=== PATIENT | male | born 1940 | race Caucasian/White ===

== ENCOUNTER 2017-05-20 07:25 | Day surgery (SDC) | payer MEDICARE ==
[2017-05-18 11:42] LABS: BASOPHILS % (AUTO) 0.5 % (0-1); EOSINOPHILS # (AUTO) 0.2 X10'3 (0-0.9); EOSINOPHILS % (AUTO) 3.1 % (0-6); LYMPHOCYTES # (AUTO) 1.3 X10'3 (1.1-4.8); LYMPHOCYTES % (AUTO) 24.9 % (21-51); MEAN CORPUSCULAR HEMOGLOBIN 31.1 PG (27.0-31.0); MEAN CORPUSCULAR HGB CONC 34.9 % (33.0-36.5); MEAN CORPUSCULAR VOLUME 89.3 FL (78-98); MEAN PLATELET VOLUME 7.7 FL (7.4-10.4); MONOCYTES # (AUTO) 0.6 X10'3 (0-0.9); MONOCYTES % (AUTO) 12.7 % (2-12); NEUTROPHILS % (AUTO) 58.8 % (42-75); PRE OP HEMATOCRIT 43.2 % (42.0-52.0); PRE OP HEMOGLOBIN 15.1 g/dL (14.0-17.9); PRE OP PLATELET COUNT 202 X10'3 (140-440); RED BLOOD COUNT 4.84 X10'6 (4.70-6.10); RED CELL DISTRIBUTION WIDTH 13.1 % (11.5-14.5)
[2017-05-18 12:02] LABS: ALBUMIN 3.8 G/DL (3.4-5.0); ALBUMIN/GLOBULIN RATIO 1.3 (1.1-1.5); ALKALINE PHOSPHATASE 81 IU/L (46-116); BLOOD UREA NITROGEN 25 MG/DL (7-18); CALCIUM 8.9 MG/DL (8.5-10.1); CHLORIDE 105 MMOL/L (99-107); CREATININE 0.96 MG/DL (0.60-1.10); PRE OP ALT 39 U/L (30-65); PRE OP ANION GAP 7 (8-16); PRE OP AST 31 U/L (10-37); PRE OP BILIRUB, TOTAL 0.9 MG/DL (0.0-1.0); PRE OP GLUCOSE 99 MG/DL (70-104); PRE OP SODIUM 142 MMOL/L (135-145); TOTAL CARBON DIOXIDE 30.3 MMOL/L (24-32); TOTAL PROTEIN 6.8 G/DL (6.4-8.2); eGFR 76 ML/MIN
[2017-05-20] VITALS (7 sets, daily range): BP systolic 118–147; BP diastolic 72–86
[~2017-05-20] VITALS: Ht 170.2 cm; Wt 82.8 kg
[~2017-05-20 07:25] MED LIST: BENA20TA9 PO; BUPIVAcaine/PF 2.5 mg/ml (0.25%) 30ml vial ONE; CETI-194 PO; CHON100P3 PO; GLUC15006 PO; HYDR25TA4 PO; LIDOcaine 1% (10mg/ml) 2ml vial ONE; LIDOcaine 1% 30ml preserv. free vial ONE; MULT-1085 PO; NAPR-996 PO; OMEP20CA10 PO; bacitracin 15gm ointment TP ONE; ceFAZolin 1000mg inj ONE; ceFAZolin 2gm in dextrose, iso 100 ML IV ONE; epiNEPHrine 1 mg/ml inj ONE; famotidine 20mg tablet PO ONE; ringers solution, lacted 1,000 ML IV SCH
[2017-05-20] MEDS ORDERED: MIDAZolam 5mg/5ml vial ONE (09:26)
[2017-05-20] MEDS ORDERED: fentaNYL/PF 50MCG/1 ML 2ML syringe ONE (09:27)
[2017-05-20] MEDS ORDERED: sevoflurane 250ml liquid IH ONE (10:32)
[2017-05-20] MEDS ORDERED: ringers solution, lacted 1,000 ML IV ONE (10:52)
[2017-05-20] MEDS ORDERED: morphine 4 MG/ML inj SYRINge IV PRN ×2 (10:55)
[2017-05-20] MEDS ORDERED: hydrALAZINE 20mg/ml inj. IV PRN (10:55)
[2017-05-20] MEDS ORDERED: meperidine/PF 50mg/ml syringe IV ONE (10:55)
[2017-05-20] MEDS ORDERED: labetalol 20mg/4ml (5mg/ml) syringe IV PRN (10:55)
[2017-05-20] MEDS ORDERED: meperidine/PF 50mg/ml syringe IV PRN ×2 (10:55)
[2017-05-20] MEDS ORDERED: ondansetron/PF 4mg/2ml inj IV PRN (10:55)
[2017-05-20] MEDS ORDERED: LIDOcaine 2% (20mg/ml) 5ml vial ONE (11:14)
[2017-05-20] MEDS ORDERED: dexamethasone sod phosphate 4mg/ml inj. ONE (11:14)
[2017-05-20] MEDS ORDERED: ondansetron/PF 4mg/2ml inj ONE (11:14)
[2017-05-20] MEDS ORDERED: propofol inj 20 ML IV ONE (11:14)
== END 2017-05-20 12:30 | disposition home or self-care (01) ==
LOC: PAS 07:25
PROVIDERS: ATTEND Surgery
DX: D17.1 Benign lipomatous neoplasm of skin and subcutaneous tissue of trunk (principal); I50.9 Heart failure, unspecified; M19.90 Unspecified osteoarthritis, unspecified site; I11.0 Hypertensive heart disease with heart failure; K21.9 Gastro-esophageal reflux disease without esophagitis; N40.0 Benign prostatic hyperplasia without lower urinary tract symptoms; Z72.89 Other problems related to lifestyle; Z90.49 Acquired absence of other specified parts of digestive tract; Z85.46 Personal history of malignant neoplasm of prostate; Z98.890 Other specified postprocedural states; Z79.899 Other long term (current) drug therapy
CPT/HCPCS: 21931; 36415; 80053; 85025; 93005; J0171; J0690; J1100; J2001; J2250; J2405; J2704; J3010; J3490; J7120; A7000

== ENCOUNTER 2017-12-07 07:48 | Emergency (ER) | payer MEDICARE ==
[~2017-12-07] VITALS: Ht 170.2 cm; Wt 79.5 kg
[~2017-12-07 07:48] MED LIST changes: -BUPIVAcaine/PF 2.5 mg/ml (0.25%) 30ml vial ONE; -LIDOcaine 1% (10mg/ml) 2ml vial ONE; -LIDOcaine 1% 30ml preserv. free vial ONE; -bacitracin 15gm ointment TP ONE; -ceFAZolin 1000mg inj ONE; -ceFAZolin 2gm in dextrose, iso 100 ML IV ONE; -epiNEPHrine 1 mg/ml inj ONE; -famotidine 20mg tablet PO ONE; -ringers solution, lacted 1,000 ML IV SCH
[2017-12-07 08:18] VITALS: BP 151/90
[2017-12-07 08:22] LABS: BASOPHILS % (AUTO) 0.4 % (0-1); EOSINOPHILS # (AUTO) 0.1 X10'3 (0-0.9); EOSINOPHILS % (AUTO) 1.3 % (0-6); HEMATOCRIT 45.9 % (42.0-52.0); HEMOGLOBIN 15.5 g/dl (14.0-17.9); LYMPHOCYTES # (AUTO) 0.8 X10'3 (1.1-4.8); LYMPHOCYTES % (AUTO) 8.3 % (21-51); MEAN CORPUSCULAR HEMOGLOBIN 30.9 PG (27.0-31.0); MEAN CORPUSCULAR HGB CONC 33.7 % (33.0-36.5); MEAN CORPUSCULAR VOLUME 91.8 FL (78-98); MEAN PLATELET VOLUME 7.5 FL (7.4-10.4); MONOCYTES # (AUTO) 0.9 X10'3 (0-0.9); MONOCYTES % (AUTO) 9.4 % (2-12); NEUTROPHILS % (AUTO) 80.6 % (42-75); PLATELET COUNT 214 X10'3 (140-440); RED CELL DISTRIBUTION WIDTH 13.5 % (11.5-14.5)
[2017-12-07 08:23] LABS: CLARITY,URINE SLIGHTLY CLOUDY (Clear); COLOR,URINE YELLOW (Yellow); GLUCOSE, URINE NEGATIVE (Neg); KETONES,URINE NEGATIVE (Neg); LEUKOCYTE ESTERASE ,URINE NEGATIVE (Neg); NITRITES, URINE NEGATIVE (Neg); OCCULT BLOOD,URINE SMALL (Neg); PH,URINE 5.5 (4.8-8.0); PROTEIN,URINE NEGATIVE (Neg); UROBILINOGEN,URINE 0.2 E.U/dL (0.2-1.0)
[2017-12-07 08:24] LABS: UA COLLECTION TYPE VOIDED
[2017-12-07 08:29] LABS: MUCUS STRANDS MANY /LPF (Neg); SQUAMOUS EPITHELIAL CELL,UR FEW /LPF (FEW)
[2017-12-07 08:30] LABS: BACTERIA,URINE NONE SEEN /HPF (Neg); RBC,URINE 0-2 /HPF (0-2); WBC,URINE 0-4 /HPF (0-4)
[2017-12-07] MEDS ORDERED: ringers solution, lactated 1000ml IV soln IV ONE (08:30)
[2017-12-07] MEDS ORDERED: ondansetron/PF 4mg/2ml inj IV ONE (08:30)
[2017-12-07 08:31] LABS: AMORPHOUS URATES 1+
[2017-12-07 08:38] LABS: ALANINE AMINOTRANSFERASE 24 U/L (12-78); ALBUMIN 3.8 G/DL (3.4-5.0); ALBUMIN/GLOBULIN RATIO 1.4 (1.1-1.5); ALKALINE PHOSPHATASE 81 IU/L (46-116); ANION GAP 7 (8-16); ASPARTATE AMINO TRANSFERASE 23 U/L (10-37); BILIRUBIN,TOTAL 0.8 MG/DL (0.1-1.0); BLOOD UREA NITROGEN 24 MG/DL (7-18); BUN/CREATININE RATIO 24.5 (5.4-32.0); CALCIUM 8.5 MG/DL (8.5-10.1); CHLORIDE 101 MMOL/L (99-107); CREATININE 0.98 MG/DL (0.60-1.10); GLUCOSE 122 MG/DL (70-104); LIPASE 157 U/L (73-393); SODIUM 138 MMOL/L (135-145); TOTAL CARBON DIOXIDE 29.7 MMOL/L (24-32); TOTAL PROTEIN 6.6 G/DL (6.4-8.2); eGFR 74 ML/MIN
[2017-12-08 17:11] LABS: OCCULT BLOOD STOOL NEGATIVE (Neg)
== END 2017-12-07 10:19 | disposition home or self-care (01) ==
LOC: ER 07:48
DX: K52.9 Noninfective gastroenteritis and colitis, unspecified (principal); I10 Essential (primary) hypertension; Z79.899 Other long term (current) drug therapy
CPT/HCPCS: 36415; 80053; 81001; 82272; 83605; 83690; 85025; 85610; 99284; J7120

== ENCOUNTER 2020-08-15 07:28 | Day surgery (SDC) | payer MEDICARE ==
[2020-08-14 13:41] LABS: BASOPHILS % (AUTO) 0.3 % (0-1); EOSINOPHILS # (AUTO) 0.1 X10'3 (0-0.9); LYMPHOCYTES # (AUTO) 1.4 X10'3 (1.1-4.8); LYMPHOCYTES % (AUTO) 23.7 % (21-51); MEAN CORPUSCULAR HEMOGLOBIN 30.2 PG (27.0-31.0); MEAN CORPUSCULAR HGB CONC 33.7 g/dL (33.0-36.5); MEAN CORPUSCULAR VOLUME 89.6 FL (78-98); MEAN PLATELET VOLUME 7.4 FL (7.4-10.4); MONOCYTES # (AUTO) 1.4 X10'3 (0-0.9); MONOCYTES % (AUTO) 23.8 % (2-12); NEUTROPHILS # (AUTO) 3.1 X10'3 (1.8-7.7); NEUTROPHILS % (AUTO) 51.2 % (42-75); PRE OP HEMATOCRIT 40.4 % (42.0-52.0); PRE OP HEMOGLOBIN 13.6 g/dL (14.0-17.9); PRE OP PLATELET COUNT 197 X10'3 (140-440); RED BLOOD COUNT 4.51 X10'6 (4.70-6.10); RED CELL DISTRIBUTION WIDTH 13.1 % (11.5-14.5)
[2020-08-14 13:51] LABS: CLARITY,URINE CLEAR (Clear); COLOR,URINE YELLOW (Yellow); GLUCOSE, URINE NEGATIVE (Neg); KETONES,URINE NEGATIVE (Neg); LEUKOCYTE ESTERASE ,URINE NEGATIVE (Neg); NITRITES, URINE NEGATIVE (Neg); OCCULT BLOOD,URINE NEGATIVE (Neg); PH,URINE 5.5 (4.8-8.0); PROTEIN,URINE NEGATIVE (Neg); UROBILINOGEN,URINE 0.2 E.U/dL (0.2-1.0)
[2020-08-14 13:56] LABS: ALBUMIN 3.8 G/DL (3.4-5.0); ALBUMIN/GLOBULIN RATIO 1.3 (1.1-1.5); ALKALINE PHOSPHATASE 85 IU/L (46-116); BLOOD UREA NITROGEN 24 MG/DL (7-18); BUN/CREATININE RATIO 25.5 (5.4-32.0); CALCIUM 8.6 MG/DL (8.5-10.1); CHLORIDE 101 MMOL/L (99-107); CREATININE 0.94 MG/DL (0.60-1.10); PRE OP ALT 29 U/L (30-65); PRE OP ANION GAP 6 (8-16); PRE OP AST 29 U/L (10-37); PRE OP BILIRUB, TOTAL 0.7 MG/DL (0.0-1.0); PRE OP GLUCOSE 97 MG/DL (70-104); PRE OP POTASSIUM 3.9 MMOL/L (3.4-5.1); PRE OP SODIUM 136 MMOL/L (135-145); TOTAL CARBON DIOXIDE 29.1 MMOL/L (24-32); TOTAL PROTEIN 6.7 G/DL (6.4-8.2); eGFR 78 ML/MIN
[2020-08-14 13:58] LABS: UA COLLECTION TYPE CLN CATCH MIDSTREAM
[2020-08-14 14:21] LABS: PLATELET ESTIMATE NORMAL; TOTAL CELLS COUNTED 100
[~2020-08-15] VITALS: Ht 170.2 cm; Wt 81.2 kg
[2020-08-15] VITALS (7 sets, daily range): BP systolic 139–156; BP diastolic 75–89
[~2020-08-15 07:28] MED LIST changes: -CHON100P3 PO; +MELO-102 PO; -NAPR-996 PO; -OMEP20CA10 PO
[2020-08-15] MEDS ORDERED: cefazolin/dext.iso 2gm/100ml 100 ML IV ONE (08:20)
[2020-08-15] MEDS ORDERED: ringers solution, lacted 1,000 ML IV SCH ×2 (09:12→12:45)
[2020-08-15] MEDS ORDERED: albuterol 2.5 MG/3 ML nebule NEB ONE (09:12)
[2020-08-15] MEDS ORDERED: famotidine 20mg tablet PO ONE (09:20)
[2020-08-15] MEDS ORDERED: hydrALAZINE 20mg/ml inj. IV PRN (12:45)
[2020-08-15] MEDS ORDERED: morphine 4 MG/ML inj SYRINge IV PRN (12:45)
[2020-08-15] MEDS ORDERED: fentaNYL/PF 50MCG/1 ML 2ML syringe IV PRN ×2 (12:45)
[2020-08-15] MEDS ORDERED: ondansetron/PF 4mg/2ml inj IV PRN (12:45)
[2020-08-15] MEDS ORDERED: labetalol 20mg/4ml (5mg/ml) syringe IV PRN (12:45)
[2020-08-15] MEDS ORDERED: morphine 2 MG/ML inj. syringe IV PRN (12:45)
[2020-08-15] MEDS ORDERED: propofol inj 20 ML IV ONE (12:46)
[2020-08-15] MEDS ORDERED: LIDOcaine 2% (20mg/ml) 5ml vial ONE (12:46)
[2020-08-15] MEDS ORDERED: ketorolac trometh. 30mg/ml inj. ONE (12:46)
[2020-08-15] MEDS ORDERED: MIDAZolam 1 MG/ML 5ML VIAL ONE (12:46)
[2020-08-15] MEDS ORDERED: acetaminophen 1,000mg/100ml IV 100 ML IV ONE (12:47)
[2020-08-15] MEDS ORDERED: BUPIVAcaine 0.5% inj/PF 60 ML ONE (12:58)
[2020-08-15] MEDS ORDERED: BUPIVAcaine 0.5% inj/PF 30 ml vial IJ ONE (13:15)
--- NOTE | 2020-08-15 13:33 | NUR ---
Received from OR via [facility] , accompanied by Anesthesiologist DON and report given by Anesthesiolgist. PATIENT WITH 20G PIV IN LEFT UE RUNNING LR AT 100. DENIES PAIN. VSS. DRESSING TO BACK IS CDI. NO DRAINAGE PRESENT. Addendum: 08/15/20 at 1351 by José Antonio Cruz RN, RN Amended: Links added.
--- NOTE | 2020-08-15 14:23 | NUR ---
ALL DISCHARGE CRITERIA HAS BEEN MET. VSS, PAIN AT A TOLERABLE LEVEL, VOIDING AND ABLE TO SAFELY AMBULATE AND TRANSFER SELF. IV TAKEN OUT WITHOUT ANY COMPLICATIONS. ALL DISCHARGE INSTRUCTIONS COVERED WITH PATIENT AND ALL QUESTIONS ANSWERED. PATIENT TAKEN OUT VIA WHEELCHAIR TO PERSONAL VEHICLE WHERE FAMILY/FRIEND DROVE PATIENT HOME. DROVE PATIENT HOME. DRESSING TO BACK STILL CDI. Addendum: 08/15/20 at 1430 by José Antonio Cruz RN, RN Amended: Links added.
== END 2020-08-15 14:23 | disposition home or self-care (01) ==
LOC: PAS 07:28
PROVIDERS: ATTEND Surgery
DX: C49.6 Malignant neoplasm of connective and soft tissue of trunk, unspecified (principal); L76.34 Postprocedural seroma of skin and subcutaneous tissue following other procedure; I10 Essential (primary) hypertension; K58.9 Irritable bowel syndrome, unspecified; G89.29 Other chronic pain; Z20.822 Contact with and (suspected) exposure to COVID-19; Z98.890 Other specified postprocedural states; Z90.79 Acquired absence of other genital organ(s); Z79.899 Other long term (current) drug therapy; Z85.46 Personal history of malignant neoplasm of prostate; Y83.8 Other surgical procedures as the cause of abnormal reaction of the patient, or of later complication, without mention of misadventure at the time of the procedure; Y92.89 Other specified places as the place of occurrence of the external cause
CPT/HCPCS: 11601; 11602; 80053; 81003; 82948; 85025; 87635; 93005; C9803; J0131; J1885; J2001; J2250; J2704; J7120; 85007; A4215; A4618; A7000

== ENCOUNTER 2020-08-15 17:37 | Emergency (ER) | payer MEDICARE ==
[~2020-08-15] VITALS: Ht 170.2 cm; Wt 81.4 kg
--- NOTE | 2020-08-15 18:24 | NUR ---
Patient resting in stretcher, ED provider at bedside for patient assessment and discussion of plan of care. Per report from dayshift [facility] pt had 3 episodes of emesis earlier today. Dressing to right upper back is in tact and bleeding seems to be controlled at this time.
[2020-08-15] MEDS ORDERED: normal saline 1000ml 1,000 ML IV ONE (18:30)
[2020-08-15] MEDS ORDERED: ondansetron/PF 4mg/2ml inj IV ONE (18:30)
[2020-08-15 19:15] LABS: BASOPHILS # (AUTO) 0.1 X10'3 (0-0.2); BASOPHILS % (AUTO) 0.6 % (0-1); EOSINOPHILS % (AUTO) 0.3 % (0-6); HEMATOCRIT 37.9 % (42.0-52.0); HEMOGLOBIN 12.8 g/dl (14.0-17.9); LYMPHOCYTES # (AUTO) 0.8 X10'3 (1.1-4.8); LYMPHOCYTES % (AUTO) 6.8 % (21-51); MEAN CORPUSCULAR HGB CONC 33.8 g/dL (33.0-36.5); MEAN CORPUSCULAR VOLUME 88.8 FL (78-98); MEAN PLATELET VOLUME 7.4 FL (7.4-10.4); MONOCYTES # (AUTO) 2.5 X10'3 (0-0.9); NEUTROPHILS # (AUTO) 7.9 X10'3 (1.8-7.7); NEUTROPHILS % (AUTO) 70.3 % (42-75); PLATELET COUNT 186 X10'3 (140-440); RED BLOOD COUNT 4.27 X10'6 (4.70-6.10); WHITE BLOOD COUNT 11.3 X10'3 (4.5-11.0)
[2020-08-15 19:21] LABS: PARTIAL THROMBOPLASTIN TIME 25 SECONDS (22-32)
[2020-08-15 19:28] LABS: ALANINE AMINOTRANSFERASE 34 U/L (12-78); ALBUMIN 3.5 G/DL (3.4-5.0); ALBUMIN/GLOBULIN RATIO 1.3 (1.1-1.5); ALKALINE PHOSPHATASE 76 IU/L (46-116); ANION GAP 8 (8-16); ASPARTATE AMINO TRANSFERASE 45 U/L (10-37); BILIRUBIN,TOTAL 0.6 MG/DL (0.1-1.0); BLOOD UREA NITROGEN 19 MG/DL (7-18); BUN/CREATININE RATIO 19.4 (5.4-32.0); CALCIUM 8.2 MG/DL (8.5-10.1); CHLORIDE 104 MMOL/L (99-107); CREATININE 0.98 MG/DL (0.60-1.10); GLUCOSE 121 MG/DL (70-104); POTASSIUM 3.8 MMOL/L (3.5-5.1); SODIUM 140 MMOL/L (135-145); TOTAL CARBON DIOXIDE 28.5 MMOL/L (24-32); TOTAL PROTEIN 6.2 G/DL (6.4-8.2); eGFR 74 ML/MIN
[2020-08-15 19:31] LABS: MAGNESIUM 2.1 MG/DL (1.5-2.4)
[2020-08-15 20:38] VITALS: BP 172/96
[2020-08-15 21:21] LABS: CLARITY,URINE CLEAR (Clear); COLOR,URINE YELLOW (Yellow); GLUCOSE, URINE NEGATIVE (Neg); KETONES,URINE 15 mg/dl (Neg); LEUKOCYTE ESTERASE ,URINE NEGATIVE (Neg); NITRITES, URINE NEGATIVE (Neg); OCCULT BLOOD,URINE NEGATIVE (Neg); PH,URINE 6.5 (4.8-8.0); PROTEIN,URINE NEGATIVE (Neg); UROBILINOGEN,URINE 0.2 E.U/dL (0.2-1.0)
[2020-08-15 21:36] LABS: UA COLLECTION TYPE CLN CATCH MIDSTREAM
== END 2020-08-15 21:10 | disposition left against medical advice (07) ==
LOC: ER 17:37
DX: R55 Syncope and collapse (principal); R42 Dizziness and giddiness; R11.2 Nausea with vomiting, unspecified; I10 Essential (primary) hypertension; Z79.899 Other long term (current) drug therapy
CPT/HCPCS: 36415; 71045; 80053; 81003; 83735; 83880; 84484; 85025; 85610; 85730; 93005; 96361; 96374; 99285; J2405; J7030